=== PATIENT | female | born 1970 | race American Indian/Alaskan Native ===

== ENCOUNTER 2017-03-08 19:13 | Emergency (ER) | payer OTHER ==
[2017-03-08 19:25] VITALS: BP 118/59; PULSE 82; RESP 18; TEMP 98.6; O2SAT 99
--- NOTE | 2017-03-08 19:32 | ED PDOC ---
HPI: General Adult Time Seen by Provider: 03/08/17 19:26 Chief Complaint (Nursing): Finger,Hand,&Wrist Chief Complaint (Provider): finger pain History Per: Patient Additional Complaint(s): Patient presents to ED for evaluation of blister to right index finger that has been presents for the past several months. Patient denies any active drainage or trauma to affected area. Denies fever or chills. She states area has been hurting her for the past 2 weeks. No meds taken for pain relief. Patient was seen by her PMD at [facility] 2 weeks ago and she was told to come to ED for further evaluation. Past Medical History Reviewed: Historical Data Vital Signs: Last Vital Signs Temp 98.6 F 03/08/17 19:22 Pulse 82 03/08/17 19:22 Resp 18 03/08/17 19:22 BP 118/59 L 03/08/17 19:22 Pulse Ox 99 03/08/17 19:32 - Medical History PMH: HTN - Surgical History Surgical History: No Surg Hx - Family History Family History: States: No Known Family Hx - Living Arrangements Living Arrangements: With Family - Social History Current smoker - smoking cessation education provided: No Alcohol: Social Drugs: Denies - Home Medications Home Medications: Ambulatory Orders Medication Instructions Recorded Nitrofurantoin Macrocrystals 100 mg PO BID #10 cap 08/04/14 [Macrobid] Metronidazole [Flagyl] 500 mg PO BID 7 Days 11/09/14 Nitrofurantoin Macrocrystals 100 mg PO BID 7 Days 11/09/14 [Macrobid] Pantoprazole Sodium [Protonix] 40 mg PO DAILY PRN #10 ect 11/07/15 Cephalexin [Keflex] 500 mg PO TID #21 capsule 03/08/17 - Allergies Allergies/Adverse Reactions: Allergies Allergy/AdvReac Type Severity Reaction Status Date / Time No Known Allergies Allergy Verified 11/07/15 21:58 Review of Systems ROS Statement: Except As Marked, All Systems Reviewed And Found Negative Constitutional: Negative for: Fever Musculoskeletal: Positive for: Other (blister to right index finger for several months, causing pain for the past 2 weeks) Physical Exam - Reviewed Nursing Documentation Reviewed: Yes Vital Signs Reviewed: Yes - Physical Exam Appears: Positive for: Well, Non-toxic, No Acute Distress Head Exam: Positive for: ATRAUMATIC, NORMAL INSPECTION, NORMOCEPHALIC Skin: Negative for: Rash Eye Exam: Positive for: Normal appearance Extremity: Positive for: Other (superficial blister fingerpad of left index finger, no warmth, erythema or fluctuance, no active drainage or bleeding, fingernail intact with no discoloration, full rom of affected digit) Neurologic/Psych: Positive for: Alert, Oriented - ECG O2 Sat by Pulse Oximetry: 99 Pulse Ox Interpretation: Normal Medical Decision Making Medical Decision Making: Impression: Blister of index finger Patient offered pain meds but she declined. Rx keflex given along with hand referral. Disposition - Clinical Impression Clinical Impression: Blister - Patient ED Disposition Is Patient to be Admitted: No Counseled Patient/Family Regarding: Diagnosis, Need For Followup, Rx Given - Disposition Referrals: Jose Ramon Maxwell MD [Staff Provider] - Disposition: Routine/Home Disposition Time: 19:41 Condition: STABLE Additional Instructions: Apply warm soaks to affected area. Take rx meds as directed. Take over the counter advil as needed for pain. Follow up with hand specialist for further evaluation. Prescriptions: Cephalexin [Keflex] 500 mg PO TID #21 capsule Instructions: [place] (ED)
== END 2017-03-08 19:50 | disposition home or self-care (01) ==
LOC: H.ER 19:13
DX: S60.420A Blister (nonthermal) of right index finger, initial encounter (principal); X58.XXXA Exposure to other specified factors, initial encounter

== ENCOUNTER 2018-05-13 07:11 | Emergency (ER) | payer OTHER ==
[2018-05-13 07:25] VITALS: BP 141/71; TEMP 98; O2SAT 99; BMI 39.1
--- NOTE | 2018-05-13 07:52 | ED PDOC ---
HPI: SOB/CHF/COPD Time Seen by Provider: 05/13/18 07:31 Chief Complaint (Nursing): Cough, Cold, Congestion Chief Complaint (Provider): Difficulty breathing History Per: Patient History/Exam Limitations: no limitations Onset/Duration Of Symptoms: Hrs (last night) Current Symptoms Are (Timing): Still Present Associated Symptoms: denies: Fever, Chills, Chest Pain, Leg/Calf Pain Additional Complaint(s): 47 year old female, with past med hx of HTN, presents to the ED complaining of difficulty breathing since last night associated with cough since last night and a sore throat since . Patient reports she feels as if "someone is sitting on my chest" but denies chest pain. She denies ear pain, headache, leg swelling, recent travel, fever, chills, and sick contacts. Patient was seen in this ED in 2014 for SOB and reflux. PCP: Laurita Avina Past Medical History Reviewed: Historical Data, Nursing Documentation, Vital Signs Vital Signs: Last Vital Signs Temp 98 F 05/13/18 07:24 Pulse 66 05/13/18 08:11 Resp BP 141/71 05/13/18 07:24 Pulse Ox 99 05/13/18 08:11 - Medical History PMH: HTN - Surgical History Surgical History: No Surg Hx - Family History Family History: States: CAD - Social History Current smoker - smoking cessation education provided: No Alcohol: Occasional Drugs: Denies - Immunization History Hx Tetanus Toxoid Vaccination: No Hx Influenza Vaccination: No Hx Pneumococcal Vaccination: No - Home Medications Home Medications: Ambulatory Orders Medication Instructions Recorded Nitrofurantoin Macrocrystals 100 mg PO BID #10 cap 08/04/14 [Macrobid] Metronidazole [Flagyl] 500 mg PO BID 7 Days tab 11/09/14 Nitrofurantoin Macrocrystals 100 mg PO BID 7 Days cap 11/09/14 [Macrobid] Pantoprazole Sodium [Protonix] 40 mg PO DAILY PRN #10 ect 11/07/15 Cephalexin [Keflex] 500 mg PO TID #21 capsule 03/08/17 Azithromycin 250 mg PO DAILY #6 tablet 05/13/18 Benzonatate [Tessalon Perle] 100 mg PO TID #21 capsule 05/13/18 - Allergies Allergies/Adverse Reactions: Allergies Allergy/AdvReac Type Severity Reaction Status Date / Time No Known Allergies Allergy Verified 11/07/15 21:58 Review of Systems ROS Statement: Except As Marked, All Systems Reviewed And Found Negative Constitutional: Negative for: Fever, Chills ENT: Positive for: Throat Pain (sore throat). Negative for: Ear Pain Cardiovascular: Negative for: Chest Pain Respiratory: Positive for: Cough (with no sputum), Shortness of Breath Musculoskeletal: Negative for: Other (leg swelling) Physical Exam - Reviewed Nursing Documentation Reviewed: Yes Vital Signs Reviewed: Yes - Physical Exam Appears: Positive for: Non-toxic, No Acute Distress Head Exam: Positive for: ATRAUMATIC, NORMOCEPHALIC Skin: Positive for: Normal Color, Warm, Dry Eye Exam: Positive for: Normal appearance ENT: Positive for: Normal ENT Inspection Neck: Positive for: Normal, Painless ROM Cardiovascular/Chest: Positive for: Regular Rate, Rhythm. Negative for: Murmur Respiratory: Positive for: Normal Breath Sounds. Negative for: Wheezing, Respiratory Distress Extremity: Positive for: Normal ROM. Negative for: Pedal Edema, Deformity Neurologic/Psych: Positive for: Alert, Oriented. Negative for: Motor/Sensory Deficits - Laboratory Results Result Diagrams: 05/13/18 08:05 05/13/18 08:05 - ECG ECG Rhythm: Positive for: Sinus Rhythm (normal axis) Interpretation Of ECG: Compared to EKG on 11/07/2015, patient has no acute changes. Rate: 66 O2 Sat by Pulse Oximetry: 99 (RA) Pulse Ox Interpretation: Normal - Radiology X-Ray: Viewed By Ms X-Ray Interpretation: No Acute Disease - Progress Condition: Re-examined, Unchanged (patient not in distress; same as when she first arrived.) Medical Decision Making Medical Decision Making: Initial Impression: Difficulty breathing Initial Plan: --ECG --CMP --Troponin --ED urine dipstick --ED urine --CBC --Chest X-ray Scribe Attestation: Documented by Alvin Cabrera acting as a scribe for Basia Escobar MD. Provider Scribe Attestation: All medical record entries made by the Scribe were at my direction and personally dictated by me. I have reviewed the chart and agree that the record accurately reflects my personal performance of the history, physical exam, medical decision making, and the department course for this patient. I have also personally directed, reviewed, and agree with the discharge instructions and disposition. Disposition - Clinical Impression Clinical Impression: Chest congestion, URI (upper respiratory infection) - Patient ED Disposition Is Patient to be Admitted: No Doctor Will See Patient In The: Office - Disposition Referrals: Laurita Bain MD [Primary Care Provider] - [facility] [place] [Outside] Disposition: Routine/Home Disposition Time: 08:45 Condition: STABLE Prescriptions: Azithromycin 250 mg PO DAILY #6 tablet Benzonatate [Tessalon Perle] 100 mg PO TID #21 capsule Instructions: Viral Upper Respiratory Infection, Adult (DC) Forms: [facility] ([place])
[2018-05-13 08:08] VITALS: PULSE 66
[2018-05-13 08:13] LABS: BASO % 0.3 % (0.0-2.0); EOS # 0.2 K/uL (0.0-0.7); EOS % 1.6 % (0.0-4.0); HEMOGLOBIN 11.3 g/dL (12.0-16.0); LYMPH # 2.8 K/uL (1.0-4.3); LYMPH % 22.2 % (20.0-40.0); MEAN CELL VOLUME 81.1 fl (81.0-99.0); MEAN CORPUSCULAR HEMOGLOBIN 26.9 pg (27.0-31.0); MEAN CORPUSCULAR HGB CONC 33.1 g/dL (33.0-37.0); MONO # 0.9 K/uL (0.0-0.8); MONO % 6.8 % (0.0-10.0); NEUT # 8.7 K/uL (1.8-7.0); NEUT % 69.1 % (50.0-75.0); RBC 4.22 Mil/uL (3.80-5.20); RED CELL DISTRIBUTION WIDTH 16.2 % (11.5-14.5); WHITE BLOOD COUNT 12.6 K/uL (4.8-10.8)
[2018-05-13 08:26] LABS: ALB/GLOB RATIO 1.1 (1.0-2.1); ALBUMIN 3.7 g/dL (3.5-5.0); ALT/SGPT 29 U/L (9-52); AST/SGOT 26 U/L (14-36); BLOOD UREA NITROGEN 17 mg/dl (7-17); CALCIUM 8.8 mg/dL (8.4-10.2); GFR AFRICAN-AMERICAN > 60; GFR NON-AFRICAN AMERICAN 59
--- NOTE | 2018-05-13 12:01 | RAD ---
HISTORY: shortness of breath, cough, chest heaviness COMPARISON: No prior. TECHNIQUE: Chest PA and lateral FINDINGS: LUNGS: No active pulmonary disease. PLEURA: No significant pleural effusion identified. No pneumothorax apparent. CARDIOVASCULAR: Normal. OSSEOUS STRUCTURES: No significant abnormalities. VISUALIZED UPPER ABDOMEN: Normal. OTHER FINDINGS: None. IMPRESSION: No active disease.
--- NOTE | 2018-05-14 10:06 | CARD ---
APPROVED REPORT EKG Measurement Heart [id number] <Conclusion> Normal sinus rhythm Normal ECG
== END 2018-05-13 09:50 | disposition home or self-care (01) ==
LOC: H.ER 07:11 → SUPCPDRO 07:11 → H.ER 09:50
DX: J06.9 Acute upper respiratory infection, unspecified (principal); R09.89 Other specified symptoms and signs involving the circulatory and respiratory systems; I10 Essential (primary) hypertension

== ENCOUNTER 2018-07-12 21:46 | Emergency (ER) | payer OTHER ==
[2018-07-12 21:46] VITALS: BMI 39.1
[2018-07-12 22:23] VITALS: BP 150/83; PULSE 64; RESP 18; TEMP 98.1; O2SAT 99
[2018-07-12 23:31] LABS: BASO # 0.1 K/uL (0.0-0.2); BASO % 0.4 % (0.0-2.0); EOS # 0.2 K/uL (0.0-0.7); EOS % 1.4 % (0.0-4.0); HEMOGLOBIN 12.1 g/dL (12.0-16.0); LYMPH # 5.2 K/uL (1.0-4.3); LYMPH % 36.2 % (20.0-40.0); MEAN CELL VOLUME 81.5 fl (81.0-99.0); MEAN CORPUSCULAR HEMOGLOBIN 27.2 pg (27.0-31.0); MEAN CORPUSCULAR HGB CONC 33.4 g/dL (33.0-37.0); MEAN PLATELET VOLUME 8.5 fl (7.2-11.7); MONO # 1.1 K/uL (0.0-0.8); MONO % 7.7 % (0.0-10.0); NEUT # 7.8 K/uL (1.8-7.0); NEUT % 54.3 % (50.0-75.0); NRBC % 0.1 % (0.0-0.0); RBC 4.46 Mil/uL (3.80-5.20); RED CELL DISTRIBUTION WIDTH 15.7 % (11.5-14.5); WHITE BLOOD COUNT 14.3 K/uL (4.8-10.8)
[2018-07-12 23:32] LABS: SQUAMOUS EPITHIAL 2 /hpf (0-5); URINE BILIRUBIN NEGATIVE (NEGATIVE); URINE BLOOD NEGATIVE (NEGATIVE); URINE CLARITY SLIGHTY-CLOUDY (Clear); URINE COLOR YELLOW (YELLOW); URINE GLUCOSE (UA) NEG (Normal); URINE LEUKOCYTE ESTERASE NEG Leu/uL (Negative); URINE PROTEIN NEGATIVE (NEGATIVE); URINE UROBILINOGEN 0.2-1.0 mg/dL (0.2-1.0)
--- NOTE | 2018-07-12 23:45 | ED PDOC ---
HPI: Back Time Seen by Provider: 07/12/18 22:33 Chief Complaint (Nursing): Back Pain Chief Complaint (Provider): Neck Pain History Per: Patient History/Exam Limitations: no limitations Onset/Duration Of Symptoms: Days (x7) Current Symptoms Are (Timing): Still Present Quality Of Discomfort: "Pain" Exacerbating Factor(s): Turning Additional Complaint(s): 47 y/o female with a PMHx of HTN presents to the ED complaining of neck pain and chest discomfort, onset one week ago. Patient reports of neck stiffness and has been taking [id number] medications with no relief. Patient noticed of having trouble turning her head to the right. Patient states neck stiffness and discomfort begins at the right upper back and radiates up into the neck. In addition, patient reports of a tingling sensation in the chest. Denies nausea, vomiting and diaphoresis. PMD: None Provided Past Medical History Reviewed: Historical Data, Nursing Documentation, Vital Signs Vital Signs: Last Vital Signs Temp 98.1 F 07/12/18 22:20 Pulse 64 07/12/18 22:20 Resp 18 07/12/18 22:20 BP 150/83 07/12/18 22:20 Pulse Ox 99 07/12/18 22:20 - Medical History PMH: HTN - Surgical History Surgical History: No Surg Hx - Family History Family History: States: CAD - Social History Current smoker - smoking cessation education provided: No Alcohol: None Drugs: Denies - Immunization History Hx Tetanus Toxoid Vaccination: No Hx Influenza Vaccination: No Hx Pneumococcal Vaccination: No - Home Medications Home Medications: Ambulatory Orders Medication Instructions Recorded Nitrofurantoin Macrocrystals 100 mg PO BID #10 cap 08/04/14 [Macrobid] Metronidazole [Flagyl] 500 mg PO BID 7 Days tab 11/09/14 Nitrofurantoin Macrocrystals 100 mg PO BID 7 Days cap 11/09/14 [Macrobid] Pantoprazole Sodium [Protonix] 40 mg PO DAILY PRN #10 ect 11/07/15 Cephalexin [Keflex] 500 mg PO TID #21 capsule 03/08/17 Azithromycin 250 mg PO DAILY #6 tablet 05/13/18 Benzonatate [Tessalon Perle] 100 mg PO TID #21 capsule 05/13/18 Cyclobenzaprine [Cyclobenzaprine 10 mg PO TID PRN #15 tab 07/13/18 HCl] Naproxen [Naprosyn] 500 mg PO Q12 #14 tab 07/13/18 - Allergies Allergies/Adverse Reactions: Allergies Allergy/AdvReac Type Severity Reaction Status Date / Time No Known Allergies Allergy Verified 07/12/18 22:20 Review of Systems ROS Statement: Except As Marked, All Systems Reviewed And Found Negative Constitutional: Negative for: Sweats Cardiovascular: Positive for: Chest Pain (discomfort) Gastrointestinal: Negative for: Nausea, Vomiting Musculoskeletal: Positive for: Neck Pain (stiffness), Back Pain (right upper back) Physical Exam - Reviewed Nursing Documentation Reviewed: Yes Vital Signs Reviewed: Yes - Physical Exam Appears: Positive for: No Acute Distress Head Exam: Positive for: ATRAUMATIC, NORMOCEPHALIC Skin: Positive for: Normal Color, Warm, Dry Eye Exam: Positive for: Normal appearance, EOMI, PERRL Neck: Positive for: Decreased ROM (at 30 degrees externally rotating the neck to the righ). Negative for: Normal (Tenderness over the scapularis and sternocleidomastoid muscle) Cardiovascular/Chest: Positive for: Regular Rate, Rhythm. Negative for: Murmur Respiratory: Positive for: Normal Breath Sounds. Negative for: Respiratory Distress Gastrointestinal/Abdominal: Positive for: Normal Exam, Soft. Negative for: Tenderness Back: Positive for: Normal Inspection. Negative for: L CVA Tenderness, R CVA Tenderness, Vertebral Tenderness Extremity: Positive for: Normal ROM. Negative for: Deformity Neurologic/Psych: Positive for: Alert, Oriented. Negative for: Motor/Sensory Deficits - Laboratory Results Result Diagrams: 07/12/18 23:15 07/12/18 23:45 - ECG O2 Sat by Pulse Oximetry: 99 (RA) Pulse Ox Interpretation: Normal Medical Decision Making Medical Decision Making: Time: 2250 Impression: 47 y/o female with torticollis and chest discomfort Plan: -- EKG -- CMP -- Troponin I -- ED Urine -- ED Urine Dipstick -- CBC with differentials -- Flexeril 10 mg PO -- Toradol 30 mg PO -- Heplock Insertion -- Cervical Spine AP & Lateral XR -- Urinalysis Time: 0125 -- Labs reviewed and show no clinically significant abnormalities. -- Cervical spine XR results show no acute findings. -- On re-evaluation, patient reports an improvement of symptoms. Patient is stable for discharge home with a diagnosis of torticollis. Scribe Attestation: Documented by Carmen Lewis acting as a scribe for Brice Abebe MD. Provider Scribe Attestation: All medical record entries made by the Scribe were at my direction and personally dictated by me. I have reviewed the chart and agree that the record accurately reflects my personal performance of the history, physical exam, medical decision making, and the department course for this patient. I have also personally directed, reviewed, and agree with the discharge instructions and disposition. Disposition - Clinical Impression Clinical Impression: Torticollis - Patient ED Disposition Is Patient to be Admitted: No Counseled Patient/Family Regarding: Studies Performed, Diagnosis, Rx Given - Disposition Disposition: Routine/Home Disposition Time: 01:25 Condition: STABLE Prescriptions: Cyclobenzaprine [Cyclobenzaprine HCl] 10 mg PO TID PRN #15 tab PRN Reason: neck pain/stiffness Naproxen [Naprosyn] 500 mg PO Q12 #14 tab Instructions: Torticollis, Adult Forms: [employer] (Amharic)
[2018-07-13 00:56] LABS: ALB/GLOB RATIO 1.1 (1.0-2.1); ALBUMIN 3.8 g/dL (3.5-5.0); ALT/SGPT 19 U/L (9-52); AST/SGOT 26 U/L (14-36); BLOOD UREA NITROGEN 12 mg/dl (7-17); GFR NON-AFRICAN AMERICAN 59
--- NOTE | 2018-07-13 08:46 | CARD ---
APPROVED REPORT Date of service: 07/12/2018 <Conclusion> Normal sinus rhythm Nonspecific T wave abnormality Abnormal ECG
--- NOTE | 2018-07-13 09:06 | RAD ---
Date of service: 07/12/2018 PROCEDURE: Cervical Spine Radiographs. HISTORY: Pain. COMPARISON: None. FINDINGS: BONES: There is normal alignment of the cervical vertebral bodies. There is mild reversal of normal cervical lordosis. Vertebral height is normal. Bone mineralization is normal. There is no acute fracture or traumatic anterior listhesis. The craniocervical junction is normal. The atlantoaxial joint normal. DISC SPACES: There is mild multilevel degenerative disc disease at C4-5 and C5-6 with anterior osteophytes. SOFT TISSUES: Normal. No prevertebral soft tissue swelling. OTHER FINDINGS: None. IMPRESSION: Mild degenerative disc disease at C4-5 and C5-6. Reversal of normal cervical lordosis may be positional or related to muscle spasm.
== END 2018-07-13 01:40 | disposition home or self-care (01) ==
LOC: H.ER 21:46
DX: M43.6 Torticollis (principal); I10 Essential (primary) hypertension; Z82.49 Family history of ischemic heart disease and other diseases of the circulatory system
CPT/HCPCS: 72040; 80053; 81003; 81025; 84484; 85025; 93005; 96374; 99283; J1885